=== PATIENT | female | born 1965 | race Caucasian/White ===

== ENCOUNTER 2017-10-14 12:57 | Emergency (ER) | payer BC, OTHER ==
[2017-10-14 13:10] VITALS: BMI 27.4
[2017-10-14 13:15] VITALS: RESP 18
--- NOTE | 2017-10-14 14:23 | C.PDOC ---
History Of Present Illness 51 year old patient presents to the emergency department complaining of pain to her lower bilateral buttock status post fall yesterday. She states the pain worsens when sitting down. Patient states that she slipped and fell down the stairs and landed on her buttocks. She is not sure of LOC but she notes she only remembers getting up from the bottom of the stairs. Otherwise patient denies any headache, dizziness, vision changes, or any other neurological symptoms. Time Seen by Provider: 10/14/17 13:25 Chief Complaint (Nursing): Back Pain History Per: Patient History/Exam Limitations: no limitations Onset/Duration Of Symptoms: Days Current Symptoms Are (Timing): Still Present Past Medical History Reviewed: Historical Data, Nursing Documentation, Vital Signs Vital Signs: Last Vital Signs Temp 98.7 F 10/14/17 15:45 Pulse 83 10/14/17 15:45 Resp 18 10/14/17 15:45 BP 133/83 10/14/17 15:45 Pulse Ox 98 10/14/17 15:45 - Medical History PMH: Denies: HIV - [facility] Procedures COLONOSCOPY (10/18/14) CONTRAST AORTOGRAM (10/18/14) CORONAR ARTERIOGR-2 CATH (10/18/14) CORONARY ARTERIOGRAM NEC (10/22/14) ESOPHAGOGASTRODUODENOSCOPY [EGD] W/CLOSED BIOPSY (10/18/14) LEFT HEART CARDIAC CATH (10/22/14) LT HEART ANGIOCARDIOGRAM (10/22/14) PACKED CELL TRANSFUSION (10/18/14) RT & LT HEART ANGIOCARD (10/18/14) RT/LEFT HEART CARD CATH (10/18/14) Family History: States: No Known Family Hx - Social History Hx Tobacco Use: No Hx Alcohol Use: No Hx Substance Use: No - Immunization History Hx Tetanus Toxoid Vaccination: No Hx Influenza Vaccination: Yes Hx Pneumococcal Vaccination: No Review Of Systems Constitutional: Negative for: Fever, Chills Eyes: Negative for: Vision Change Cardiovascular: Negative for: Chest Pain Respiratory: Negative for: Shortness of Breath Gastrointestinal: Negative for: Nausea, Vomiting Neurological: Negative for: Weakness, Numbness, Headache, Dizziness Physical Exam - Physical Exam Appears: Non-toxic, No Acute Distress Skin: Warm, Dry Head: Atraumatic, Normacephalic Eye(s): bilateral: Normal Inspection Oral Mucosa: Moist Neck: Supple Chest: Symmetrical Cardiovascular: Rhythm Regular, No Murmur Respiratory: Normal Breath Sounds, No Rales, No Rhonchi, No Wheezing Gastrointestinal/Abdominal: Soft, No Tenderness Back: Other (Tenderness to bilateral posterior iliac spine; no midline spinal tenderness) Extremity: Other (5/5 strength in all extremities) Neurological/Psych: Oriented x3, Normal Speech, Normal Sensation Gait: Steady ED Course And Treatment O2 Sat by Pulse Oximetry: 96 (RA) Pulse Ox Interpretation: Normal - Other Rad Pelvis X-Ray: Read By Radiologist Interpretation: Accession No. : [id number]. Patient Name / ID : LAZARUS WANG / [id number]. Exam Date : 10/14/2017 14:13:05 ( Approved ). Study Comment : Sex / Age : F / 3Y. Creator : Jelani Paez MD. Dictator : Jelani Paez MD. District Associate Judge : Table Setter : Jelani Paez MD. Approver2 : Report Date : 10/14/2017 16:34:24. My Comment : . Date of service: 10/14/2017. PROCEDURE: Radiographs of the pelvis. HISTORY: fall. COMPARISON: None. FINDINGS: BONES: Pelvic Bones: Unremarkable. Hips: Grossly unremarkable. JOINTS: Sacroiliac Joints: Unremarkable. Pubic Symphysis: Unremarkable. OTHER FINDINGS: None. IMPRESSION: Unremarkable radiographs of the pelvis. Sacrum/Coccyx X-Ray: Read By Radiologist Interpretation: Accession No. : [id number]. Patient Name / ID : LAZARUS WANG / [id number]. Exam Date : 10/14/2017 14:13:05 ( Approved ). Study Comment : Sex / Age : F / 51Y. Creator : Jelani Paez MD. Dictator : Jelani Paez MD. District Associate Judge : Table Setter : Jelani Paez MD. Approver2 : Report Date : 10/14/2017 16:34:53. My Comment : . Date of service: 10/14/2017. PROCEDURE: Radiographs of the Sacrum and Coccyx. HISTORY: fall. COMPARISON: None available. TECHNIQUE: Frontal and lateral views of the sacrum and coccyx. FINDINGS: BONES: Sacrum and coccyx unremarkable. No fracture or focal lesion. SACROILIAC JOINTS: Unremarkable. OTHER FINDINGS: None. IMPRESSION: Unremarkable radiographs of the sacrum and coccyx. Medical Decision Making Medical Decision Making: Impression: Lower back pain Plan: -Pelvis X-Ray -Sacrum/Coccyx X-Ray -Toradol Patient re-evaluated,flex wu that toradol helped with pain. XR results discussed , patient advised to take NSAIDs at home for pain, use ice/heat packs, and follow up with PMD as needed. Disposition - Disposition Disposition: HOME/ ROUTINE Disposition Time: 16:05 Condition: GOOD Additional Instructions: KATHLEEN QIU, thank you for letting us take care of you today. Your provider was Chrissy Crowder MD and you were treated for LOWER BACK PAIN. The emergency medical care you received today was directed at your acute symptoms. If you were prescribed any medication, please fill it and take as directed. It may take several days for your symptoms to resolve. Return to the Emergency Department if your symptoms worsen, do not improve, or if you have any other problems. Please contact your doctor or call one of the physicians/clinics you have been referred to that are listed on the Patient Visit Information form that is included in your discharge packet. Bring any paperwork you were given at discharge with you along with any medications you are taking to your follow up visit. Our treatment cannot replace ongoing medical care by a primary care provider outside of the emergency department. Thank you for allowing the [facility] team to be part of your care today. If you had an X-Ray or CT scan: A Radiologist will review the ED reading if any change in treatment is needed we will contact you. If you had a blood, urine, or wound culture: It will take several days for the results, if any change in treatment is needed we will contact you. If you had an STI test: It will take 48 hours for the results. Please call after 1 week if you have not heard back. Instructions: Hip Pointer (DC) Forms: [employer] [facility] (German), Work Excuse - Clinical Impression Clinical Impression: Contusion, hip - Scribe Statement The provider has reviewed the documentation as recorded by the Kike Vee Provider Attestation: All medical record entries made by the Kike were at my direction and personally dictated by me. I have reviewed the chart and agree that the record accurately reflects my personal performance of the history, physical exam, medical decision making, and the department course for this patient. I have also personally directed, reviewed, and agree with the discharge instructions and disposition.
[2017-10-14 15:46] VITALS: BP 133/83; PULSE 83; TEMP 98.7
--- NOTE | 2017-10-14 16:36 | RAD ---
Date of service: 10/14/2017 PROCEDURE: Radiographs of the pelvis. HISTORY: fall COMPARISON: None. FINDINGS: BONES: Pelvic Bones: Unremarkable. Hips: Grossly unremarkable. JOINTS: Sacroiliac Joints: Unremarkable. Pubic Symphysis: Unremarkable. OTHER FINDINGS: None. IMPRESSION: Unremarkable radiographs of the pelvis.
--- NOTE | 2017-10-14 16:36 | RAD ---
Date of service: 10/14/2017 PROCEDURE: Radiographs of the Sacrum and Coccyx HISTORY: fall COMPARISON: None available. TECHNIQUE: Frontal and lateral views of the sacrum and coccyx FINDINGS: BONES: Sacrum and coccyx unremarkable. No fracture or focal lesion. SACROILIAC JOINTS: Unremarkable. OTHER FINDINGS: None. IMPRESSION: Unremarkable radiographs of the sacrum and coccyx.
[2017-10-14 19:28] VITALS: O2SAT 96
== END 2017-10-14 16:06 | disposition home or self-care (01) ==
LOC: C.ER 12:57
DX: S70.02XA Contusion of left hip, initial encounter (principal); S70.01XA Contusion of right hip, initial encounter; W10.9XXA Fall (on) (from) unspecified stairs and steps, initial encounter
CPT/HCPCS: 72170; 72220; 96372; 99283; J1885

== ENCOUNTER 2017-10-20 22:57 | Emergency (ER) | payer BC ==
[2017-10-20 22:58] VITALS: BMI 27.4
[2017-10-20 23:43] VITALS: BP 121/77; PULSE 85; RESP 18; TEMP 99; O2SAT 100
--- NOTE | 2017-10-21 00:59 | C.PDOC ---
History Of Present Illness 51 year old female presents to the ED for evaluation of right ankle pain and swelling which began earlier today. Patient states she was climbing down a pool ladder when she accidentally missed a step and twisted her ankle. She denies any other injuries or extremity numbness/weakness at this time. Time Seen by Provider: 10/20/17 23:41 Chief Complaint (Nursing): Lower Extremity Problem/Injury History Per: Patient History/Exam Limitations: no limitations Onset/Duration Of Symptoms: Hrs Current Symptoms Are (Timing): Still Present Additional History Per: Patient - Ankle/Foot Description Of Injury: Twisted Past Medical History Reviewed: Historical Data, Nursing Documentation, Vital Signs Vital Signs: Last Vital Signs Temp 99 F 10/20/17 23:43 Pulse 85 10/20/17 23:43 Resp 18 10/20/17 23:43 BP 121/77 10/20/17 23:43 Pulse Ox 100 10/21/17 04:36 - Medical History PMH: No Chronic Diseases Denies: HIV Surgical History: No Surg Hx - [facility] Procedures COLONOSCOPY (10/18/14) CONTRAST AORTOGRAM (10/18/14) CORONAR ARTERIOGR-2 CATH (10/18/14) CORONARY ARTERIOGRAM NEC (10/22/14) ESOPHAGOGASTRODUODENOSCOPY [EGD] W/CLOSED BIOPSY (10/18/14) LEFT HEART CARDIAC CATH (10/22/14) LT HEART ANGIOCARDIOGRAM (10/22/14) PACKED CELL TRANSFUSION (10/18/14) RT & LT HEART ANGIOCARD (10/18/14) RT/LEFT HEART CARD CATH (10/18/14) Family History: States: Unknown Family Hx - Social History Hx Tobacco Use: No Hx Alcohol Use: No Hx Substance Use: No - Immunization History Hx Tetanus Toxoid Vaccination: No Hx Influenza Vaccination: Yes Hx Pneumococcal Vaccination: No Review Of Systems Musculoskeletal: Positive for: Other (right ankle pain ) Physical Exam - Physical Exam Appears: Non-toxic, No Acute Distress Skin: Normal Color, Warm, Dry Extremity: Tenderness (moderate, to right lateral malleolus ), Capillary Refill (less than 2 seconds ), Deformity (right lateral malleolus ), Swelling (moderate , to right lateral malleolus ) Pulses: Left Dorsalis Pedis: Normal, Right Dorsalis Pedis: Normal Neurological/Psych: Oriented x3, Normal Speech, Normal Cognition ED Course And Treatment O2 Sat by Pulse Oximetry: 100 (on RA) Pulse Ox Interpretation: Normal Progress Note: Right ankle XR ordered. Results show nondisplaced fracture of the distal fibula. Posterior splint applied by rehab tech and checked by me. Patient instructed on use of crutches. On re-exam, patient is resting comfortably, showing no signs of distress and reports an improvement in her symptoms. Patient is stable for discharge. She is advised to follow up with orthopedic care within 1-2 days for further evaluation. Reevaluation Time: 04:51 Reassessment Condition: Improved Disposition Discussed With : [id number] Counseled Patient/Family Regarding: Diagnosis, Need For Followup, Rx Given - Disposition Referrals: Clemente Valdez III, MD [Staff Provider] - Disposition: HOME/ ROUTINE Disposition Time: 00:59 Condition: STABLE Additional Instructions: Please follow up with PMD/ orthopedist Take motrin for pain Leg elevation Return to ER if severe pain, numbness, weakness or worse Prescriptions: Ibuprofen [Motrin] 600 mg PO Q6H #30 tab Instructions: Ankle Fracture (DC) Forms: [employer] (Kinyarwanda), Work Excuse - Clinical Impression Clinical Impression: Closed right ankle fracture - PA / LINUX SECURITY ADMINISTRATOR / Resident Statement MD/DO has reviewed & agrees with the documentation as recorded. - Scribe Statement The provider has reviewed the documentation as recorded by the Scribe (Tricia St) All medical record entries made by the Scribe were at my direction and personally dictated by me. I have reviewed the chart and agree that the record accurately reflects my personal performance of the history, physical exam, medical decision making, and the department course for this patient. I have also personally directed, reviewed, and agree with the discharge instructions and disposition.
--- NOTE | 2017-10-21 10:14 | RAD ---
Date of service: 10/20/2017 PROCEDURE: Right Ankle Radiographs. HISTORY: pain, twisting injury COMPARISON: None FINDINGS: BONES: Acute comminuted oblique nondisplaced fracture in the lateral malleolus. Bone alignment is normal. There is diffuse bone demineralization. JOINTS: Normal. No osteoarthritis. Ankle mortise maintained. Talar dome intact SOFT TISSUES: There is moderate lateral soft tissue swelling. OTHER FINDINGS: None. IMPRESSION: Acute comminuted oblique nondisplaced fracture in the lateral malleolus. No dislocation.
== END 2017-10-21 01:31 | disposition home or self-care (01) ==
LOC: C.ER 22:57
DX: S82.891A Other fracture of right lower leg, initial encounter for closed fracture (principal); W11.XXXA Fall on and from ladder, initial encounter